=== PATIENT | male | born 1985 | race Caucasian/White ===

== ENCOUNTER 2020-09-01 12:38 | Emergency (ER) | payer OTHER ==
[2020-09-01 13:40] LABS: BILIRUBIN 1+ mg/dL (NEGATIVE); BLOOD 3+ Ery/uL (NEGATIVE); CLARITY CLEAR (CLEAR); COLOR YELLOW (YELLOW); GLUCOSE (U) NORMAL (NORMAL); LEUKOCYTES NEGATIVE Leu/uL (NEGATIVE); NITRITE NEGATIVE (NEGATIVE); PROTEIN 2+ mg/dL (NEGATIVE); SPECIFIC GRAVITY 1.025 (1.001-1.030); UROBILINOGEN 0.2 mg/dL (0.2-1.0)
[2020-09-01 13:40] LABS: BASOPHIL 0.7 % (0-2); EOSINOPHIL 1.9 % (0-5); HCT 41.8 % (42.0-52.0); HGB 14.7 g/dl (13.2-18.0); LYMPHOCYTE 22.7 % (15-48); MCH 31.3 pg (25.0-31.0); MCHC 35.2 g/dL (32.0-36.0); MCV 88.9 fL (78.0-100.0); MONOCYTE 5.8 % (0-12); MPV 10.4 fL (6.0-9.5); NEUTROPHIL 68.7 % (41-80); NRBC 0; PLT 265 K/uL (150-400); RDW 12.7 % (11.5-14.0); WBC 11.8 K/uL (4.0-10.5)
[2020-09-01 13:48] LABS: URINARY WBC RARE
[2020-09-01 13:49] LABS: MUCOUS TRACE; SQUAMOUS EPITHELIAL CELLS RARE; URINARY RBC 20-50
[2020-09-01 13:58] LABS: ALBUMIN 4.4 g/dL (3.4-5.0); BILIRUBIN - TOTAL 0.4 mg/dL (0.2-1.0); BUN/CREAT RATIO (CALC) 16.5 RATIO; CREATININE 0.91 mg/dL (0.67-1.17); GLOBULIN (CALCULATION) 3.6 g/dL; POTASSIUM 4.1 mmol/L (3.5-5.1)
[2020-09-01] MEDS ORDERED: PERCOCET 10-321 EACH PO (15:44)
[2020-09-01] MEDS ORDERED: ZOFRAN4 M1 PO (15:44)
== END 2020-09-01 16:05 | disposition home or self-care (01) ==
LOC: FER 12:38
PROVIDERS: Emergency Medicine
DX: N13.2 Hydronephrosis with renal and ureteral calculous obstruction (principal); Z87.442 Personal history of urinary calculi
CPT/HCPCS: 36415; 80053; 81001; 82150; 83690; 85025; J1170; J1885; J2405